=== PATIENT | female | born 1970 | race Caucasian/White ===

== ENCOUNTER → 2017-02-03 | Outpatient (CLI) | payer OTHER | END | disposition home or self-care (01) | LOC: LAB.O 07:06 | PROVIDERS: ATTEND Family Medicine | DX: E34.9 Endocrine disorder, unspecified (principal); R94.6 Abnormal results of thyroid function studies ==

== ENCOUNTER → 2017-03-12 | Outpatient (CLI) | payer OTHER ==
--- NOTE | 2017-03-12 14:48 | US ---
EXAM DESCRIPTION: Thyroid: Ultrasound. CLINICAL HISTORY: NONSPECIFIC ABNORMALITY OF THYROID FNCTN STUDY COMPARISON: None available. TECHNIQUE: Transcutaneous scannin-dimensional and Doppler modes. Largest nodule(s) bilaterally will have point score for TI-RADS. FINDINGS: Right lobe dimensions 4.2 x 1.9 x 1.7 cm. Heterogeneous echoes. 1.6 cm hypoechoic solid nodule in the posterior mid lobe with well-defined andersen, no echogenic foci, and wider than tall orientation. Nonvascular. Second nodule 1.3 cm long axis, in the anterior mid right lobe, solid and isoechoic. Wider than tall orientation and no echogenic foci, minimally vascular. Normal vascularity in the remainder of the lobe with no echogenic foci. Contour right lobe smooth. Juxta-thyroid masses/fluid: none. Left lobe dimensions 4.1 x 1.8 x 1.5 cm. Heterogeneous echoes. A mostly solid hypoechoic 8.3 mm long axis nodule posterior mid lobe. Lobulated borders with wider than tall orientation, and no echogenic foci, and nonvascular. Normal and the remainder of the lobe with no echogenic foci. Contour left lobe smooth. Juxta-thyroid masses/fluid: none. Isthmus thickness 11 mm. Heterogeneous echoes. Hypoechoic, 1.1 cm long axis, solid mass in the midline and right side with well-defined andersen. Wider than tall orientation with no echogenic foci and nonvascular. Normal vascularity in the remainder of the isthmus. Contour smooth. IMPRESSION: 1. 1.6 cm solid nodule in the right lobe with ACR TI RADS score of 4 points. Grade TR 4-moderately suspicious. With greatest diameter longer than 1.5 cm Limit, image guided fine needle aspiration sampling should be considered. Please see additional information below.* 2. 1.3 cm solid nodule in the right lobe with ACR TI RADS score of 4 points. Grade TR 4-moderately suspicious. With greatest diameter less than 1.5 cm limit, follow up thyroid ultrasound in one year should be considered. 3. 8.3 mm mostly solid nodule with lobulated borders in the left lobe. ACR TI RADS score of 6 points. Grade TR 4-moderately suspicious. With greatest diameter less than 1.5 cm limit, follow-up thyroid ultrasound in one year should be considered. 4. 1.1 cm solid mass in the right isthmus. ACR TI RADS score of 4 points. Grade TR 4-moderately suspicious. With greatest diameter less than 1.5 cm limit, follow up thyroid ultrasound in one year should be considered. 5. No discrete solid masses, cystic masses, or edema in the surrounding soft tissues. 6. Would be helpful to compare to prior thyroid imaging studies and reports. *ACR TI-RADS recommendations: TR5 (greater than or equal to 7 points) - FNA if greater than or equal to 1 cm, follow-up if 0.5 - 0.9 cm every year for 5 years TR4 (4-6 points) - FNA if greater than or equal to 1.5 cm, follow-up if 1 - 1.4 cm in 1, 2, 3 and 5 years TR3 (3 points) - FNA if greater than or equal to 2.5 cm, follow -up if 1.5 - 2.4 cm in 1, 3 and 5 years TR2 (2 points) and TR1 (0 points) - No FNA or follow-up * ACR TI-RADS recommends that no more than two nodules with the highest ACR TI-RADS total point should be biopsied and no more than four nodules should be followed. White Paper of the ACR TI-RADS Committee, KATHLEEN, 2017. Electronically signed by: Homero Avilez MD 03/12/2017 2:47 PM [facility]
== END | disposition home or self-care (01) ==
LOC: US 08:28
PROVIDERS: ATTEND Family Medicine
DX: R94.6 Abnormal results of thyroid function studies (principal)

== ENCOUNTER → 2017-03-24 | Outpatient (CLI) | payer OTHER ==
--- NOTE | 2017-03-24 12:22 | US ---
EXAM DESCRIPTION: Biopsy/Needle Guidance: Ultrasound. CLINICAL HISTORY: 47 yearsFemale. Right lobe thyroid nodule. COMPARISON: None. TECHNIQUE: Procedure was explained to the patient with risks and benefits. The patient gave verbal and written consent. Sterile preparation draping. 1% xylocaine dermal anesthetic. Sterile ultrasound guidance. A total of 4 passes into right solid thyroid nodule; 3 needle samplings with a separate 1.5 inch, 25-gauge needle per sample, and 1 needle aspiration, with a separate 1.5 inch, 25-gauge needle/10-cc syringe set, per aspiration. Each sample was placed on a separate slide and fixed in 95% alcohol container. for later pathologic examination at remote facility. . Aspirate placed in [place]com[place] fluid container. Patient tolerated procedure well, with no immediate complications. FINDINGS: Images prior to the procedure show the borderline isoechoic-hypoechoic nodule in the posterior right lobe with transverse diameter 8.5 mm. Smaller central echogenic nodule. Images during the procedure show the echogenic needle and tip within the nodule. IMPRESSION: Successful, ultrasound-guided, fine-needle sampling and aspiration of right thyroid nodule. Pathology reports are pending. Electronically signed by: Homero Avilez MD 03/24/2017 12:21 PM [facility] [employer]
== END ==
LOC: US 09:00
PROVIDERS: ATTEND Family Medicine
DX: R22.9 Localized swelling, mass and lump, unspecified (principal); E04.9 Nontoxic goiter, unspecified

== ENCOUNTER → 2017-04-01 | Outpatient (CLI) | payer OTHER | LOC: LAB.O 08:55 | PROVIDERS: ATTEND Family Medicine | DX: Z00.00 Encounter for general adult medical examination without abnormal findings (principal); R73.9 Hyperglycemia, unspecified; E04.9 Nontoxic goiter, unspecified; E53.8 Deficiency of other specified B group vitamins; E55.9 Vitamin D deficiency, unspecified ==

== ENCOUNTER → 2017-04-12 | Outpatient (CLI) | payer OTHER | LOC: GMAM 12:30 | PROVIDERS: ATTEND Family Medicine | DX: E04.9 Nontoxic goiter, unspecified (principal) ==

== ENCOUNTER → 2017-07-02 | Outpatient (CLI) | payer OTHER | LOC: GMAM 11:55 | PROVIDERS: ATTEND Family Medicine | DX: E04.9 Nontoxic goiter, unspecified (principal) ==

== ENCOUNTER → 2017-07-03 | Outpatient (CLI) | payer OTHER | LOC: LAB.O 14:19 | PROVIDERS: ATTEND Family Medicine | DX: E04.9 Nontoxic goiter, unspecified (principal) ==

== ENCOUNTER → 2017-12-28 | Outpatient (CLI) | payer OTHER | LOC: LAB.O 08:13 | PROVIDERS: ATTEND Family Medicine | DX: Z79.899 Other long term (current) drug therapy (principal); R94.6 Abnormal results of thyroid function studies; R73.9 Hyperglycemia, unspecified; E04.9 Nontoxic goiter, unspecified ==

== ENCOUNTER → 2018-01-04 | Outpatient (CLI) | payer OTHER | LOC: LAB.O 15:01 | PROVIDERS: ATTEND Family Medicine | DX: N76.0 Acute vaginitis (principal) ==

== ENCOUNTER → 2018-01-19 | Outpatient (CLI) | payer OTHER ==
--- NOTE | 2018-01-19 13:54 | US ---
EXAM DESCRIPTION: Pelvis Transvaginal: Ultrasound. CLINICAL HISTORY: ABNORMAL BLEEDING COMPARISON: Hysterosalpingogram 06/18/2012. Prior images and report are not available. TECHNIQUE: Endovaginal scanning; Hoskins-scale and Doppler modes. FINDINGS: Uterus 8.7 x 4.9 x 3.5 cm. Endometrial thickness is 5.6 mm. Myometrium appears heterogeneous.. Hyperechoic mass posterior to the endometrial measures 2.2 x 0.8 x 1.6 cm. Uterus not retroflexed. Cervix fluid in the endocervical canal. 8.9 mm hypoechoic object with uniform echoes in the endocervix. 2 echogenic objects within the canal measuring 3.0 and 4.3 mm.. Cul-de-sac contains no fluid. Right ovary 2.1 x 1.9 x 1.4 cm. Normal waveform and color Doppler vascularity. No follicles or cysts. No adnexal mass or free fluid. Left ovary 3.0 x 2.7 x 2.3 cm. Normal waveform and color Doppler vascularity. 1.5 x 1.3 x 1.3 cm simple cyst. Nonvascular. No adnexal mass or free fluid. IMPRESSION: 1. Fluid in the endocervical canal with echogenic objects which could represent polyps. Also well-circumscribed round hypoechoic object more likely to be a complicated nabothian cyst. Cannot exclude solid mass. 2. No endometrial thickening. Normal uterine position, not enlarged. No fluid in the cul-de-sac. 3. Simple 1.5 cm cyst in the left ovary. Normal vascularity of the ovary. No follow-up imaging is recommended. Reference: US recommendations based on Radiology 2009;256(3):943-54; CT/MR recommendations based on J Am Jonny Radiol 2013;10:675-681. 4. Right ovary is unremarkable. No adnexal mass or free fluid. Electronically signed by: Homero Avilez MD 01/19/2018 1:53 PM ELECTRONICS INSTRUCTOR
--- NOTE | 2018-01-20 16:47 | MAM ---
EXAM DESCRIPTION: 3D Screening BILATERAL : Digital Mammography. CLINICAL HISTORY: 47 years Female ANNUAL SCREENING . No complaints. No personal or family history of breast cancer. Childbirth. Premenopausal. No HRT. Confucianism inheritance.. Lifetime risk of developing breast cancer (Tyrer-Cuzick model)(%): 12.7. COMPARISON: 2-D digital screening bilateral mammography 05/20/2012.. TECHNIQUE: Bilateral CC and MLO projection full-field images, digital tomosynthesis mammographic technique. Bilateral digital 2-D full-field MLO images. CAD not available for tomosynthesis or 2-D images. FINDINGS: The breast parenchymal density pattern is: Heterogeneously dense breast tissue, which may obscure small masses. No skin thickening or nipple retraction. Bilateral solitary microcalcifications. No new focal, stellate mass or density, focal asymmetry , and no suspicious microcalcifications bilaterally. Stable mammograms compared to prior study. Taking into account, differences in mammographic technique. IMPRESSION: Benign exam. BIRAD CATEGORY: 2 BENIGN FINDINGS. RECOMMENDATIONS: FOLLOW UP: Routine digital bilateral mammographic screening, one year interval from December 2017. Written communication explaining the IMPRESSION and follow-up, will be mailed to the patient and referring health care provider. According to the [employer], yearly mammograms are recommended starting at age 40 and continuing as long as a woman is in good health. Any breast change noted on a breast self-exam should be reported promptly to the patient's healthcare provider. Breast MRI is recommended for women with an approximately 20-25% or greater lifetime risk of breast cancer, including women with a strong family history of breast or ovarian cancer and women who have been treated for Hodgkin's disease. A negative mammographic report should not delay tissue diagnosis in patients with significant clinical history or physical findings. Extremely dense breast tissue limits the sensitivity of digital mammography. Electronically signed by: Homero Avilez MD 01/20/2018 4:46 PM [employer] TRANSPLANT NETWORK MANAGER
== END ==
LOC: US 07:41
PROVIDERS: ATTEND Obstetrics & Gynecology
DX: N93.9 Abnormal uterine and vaginal bleeding, unspecified (principal); N83.202 Unspecified ovarian cyst, left side

== ENCOUNTER → 2018-01-27 | Outpatient (CLI) | payer OTHER | LOC: LAB.O 08:36 | PROVIDERS: ATTEND Family Medicine | DX: R77.8 Other specified abnormalities of plasma proteins (principal) ==

== ENCOUNTER → 2018-07-07 | Outpatient (CLI) | payer BC | LOC: LAB.O 07:17 | PROVIDERS: ATTEND Family Medicine | DX: R73.9 Hyperglycemia, unspecified (principal); E04.9 Nontoxic goiter, unspecified; R94.6 Abnormal results of thyroid function studies; Z79.899 Other long term (current) drug therapy; E53.8 Deficiency of other specified B group vitamins; E78.2 Mixed hyperlipidemia; E03.9 Hypothyroidism, unspecified; E55.9 Vitamin D deficiency, unspecified ==

== ENCOUNTER → 2019-01-15 | Outpatient (CLI) | payer OTHER | END | disposition home or self-care (01) | LOC: LAB.O 07:41 | PROVIDERS: ATTEND Family Medicine | DX: Z00.00 Encounter for general adult medical examination without abnormal findings (principal); E53.8 Deficiency of other specified B group vitamins; E55.9 Vitamin D deficiency, unspecified ==

== ENCOUNTER → 2019-01-15 | Outpatient (CLI) | payer BC | END | disposition home or self-care (01) | LOC: LAB.O 07:22 | PROVIDERS: ATTEND Family Medicine | DX: Z00.00 Encounter for general adult medical examination without abnormal findings (principal) ==

== ENCOUNTER → 2019-01-28 | Outpatient (CLI) | payer BC ==
--- NOTE | 2019-01-28 14:27 | MAM ---
EXAM DESCRIPTION: 3D Screening BILATERAL : Digital Mammography. CLINICAL HISTORY: 48 years Female ANNUAL SCREENING . No complaints. No personal or family history of breast cancer. Menarche age 13. Childbirth age 31. Premenopausal. Maternal degeneration here tendons. No HRT. Lifetime risk of developing breast cancer (Tyrer-Cuzick model)(%): 12.5. COMPARISON: Bilateral screening digital breast tomosynthesis 19 January 2018.. TECHNIQUE: Bilateral CC and MLO projection full-field images, digital tomosynthesis mammographic technique. Bilateral digital 2-D full-field MLO images. CAD not available for tomosynthesis or 2-D images. FINDINGS: The breast parenchymal density pattern is: Heterogeneously dense breast tissue, which may obscure small masses. No skin thickening or nipple retraction. I lateral axillary lymph nodes. No new focal, stellate mass or density, focal asymmetry , and no suspicious microcalcifications bilaterally. Stable mammograms compared to prior study. IMPRESSION: Benign exam. BIRAD CATEGORY: 2 BENIGN FINDINGS. RECOMMENDATIONS: FOLLOW UP: Routine digital bilateral mammographic screening, one year interval from January 2019. Written communication explaining the IMPRESSION and follow-up, will be mailed to the patient and referring health care provider. According to the [employer], yearly mammograms are recommended starting at age 40 and continuing as long as a woman is in good health. Any breast change noted on a breast self-exam should be reported promptly to the patient's healthcare provider. Breast MRI is recommended for women with an approximately 20-25% or greater lifetime risk of breast cancer, including women with a strong family history of breast or ovarian cancer and women who have been treated for Hodgkin's disease. A negative mammographic report should not delay tissue diagnosis in patients with significant clinical history or physical findings. Extremely dense breast tissue limits the sensitivity of digital mammography. Electronically signed by: Homero Avilez MD 01/28/2019 2:25 PM FLIGHT READINESS TECHNICIAN
== END ==
LOC: MAMMO 09:56
PROVIDERS: ATTEND Family Medicine
DX: Z12.31 Encounter for screening mammogram for malignant neoplasm of breast (principal)

== ENCOUNTER → 2019-08-10 | Outpatient (CLI) | payer SELFPAY | LOC: LAB 17:32 | PROVIDERS: ATTEND Obstetrics & Gynecology | DX: R10.2 Pelvic and perineal pain (principal) ==